=== PATIENT | female | born 1975 | race American Indian/Alaskan Native ===

== ENCOUNTER 2019-07-28 18:56 | Emergency (ER) | payer SELFPAY ==
--- NOTE | 2019-07-28 19:55 | Emergency Department Report ---
Blank Doc - Documentation Documentation: 44-year-old female that presents with fever. Patient history includes MR. This initial assessment/diagnostic orders/clinical plan/treatment(s) is/are subject to change based on patient's health status, clinical progression and re- assessment by fellow clinical providers in the ED. Further treatment and workup at subsequent clinical providers discretion. Patient/guardians urged not to elope from the ED as their condition may be serious if not clinically assessed and managed. Initial orders include: 1- Patient sent to [facility] for further evaluation and treatment 2- UA 3- CXR 4- flu swab
[2019-07-28 20:00] VITALS: BP 120/79
== END 2019-07-28 20:05 | disposition left against medical advice (07) ==
LOC: ED 18:56
DX: R50.9 Fever, unspecified (principal); Z53.21 Procedure and treatment not carried out due to patient leaving prior to being seen by health care provider